=== PATIENT | male | born 1965 | race Caucasian/White ===

== ENCOUNTER 2017-11-29 23:56 | Emergency (ER) | payer OTHER ==
[2017-11-30 00:11] VITALS: TEMP 99.1
[2017-11-30] MEDS ORDERED: SODIUM CHLORIDE 0.9% 1,000 ML IV ONE (01:23)
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
--- NOTE | 2017-11-30 01:48 | XR ---
EXAMINATION TYPE: XR femur LT DATE OF EXAM: 11/30/2017 COMPARISON: NONE HISTORY: Pain TECHNIQUE: 4 views FINDINGS: I see no fracture nor dislocation. Hip joint and knee joint appear intact. IMPRESSION: Negative left femur exam.
--- NOTE | 2017-11-30 01:48 | XR ---
EXAMINATION TYPE: XR tibia fibula LT DATE OF EXAM: 11/30/2017 COMPARISON: NONE HISTORY: Leg pain TECHNIQUE: 4 views FINDINGS: There is nondisplaced transverse fracture of the head of the fibula. The ankle joint appear s intact. There is soft tissue swelling around the ankle. Knee joint spaces are fairly normal. IMPRESSION: Nondisplaced fibular head fracture.
--- NOTE | 2017-11-30 01:49 | XR ---
EXAMINATION TYPE: XR foot complete LT DATE OF EXAM: 11/30/2017 COMPARISON: NONE HISTORY: Foot pain TECHNIQUE: 3 views FINDINGS: Metatarsals are intact. I see no fracture nor dislocation. There are small calcaneal spurs. There is mild soft tissue swelling of the forefoot. IMPRESSION: Mild soft tissue swelling. No fracture.
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
[2017-11-30 02:31] LABS: Basophils % (A) 0 %; Eosinophils # (A) 0.4 k/uL (0-0.7); Eosinophils % (A) 4 %; HCT 39.7 % (39.0-53.0); HGB 13.4 gm/dL (13.0-17.5); Lymphocytes # (A) 2.3 k/uL (1.0-4.8); Lymphocytes % (A) 23 %; MCHC 33.6 g/dL (31.0-37.0); MCV 92.2 fL (80.0-100.0); Mean Platelet Volume 6.4; Monocytes # (A) 0.6 k/uL (0-1.0); Monocytes % (A) 6 %; Neutrophils # (A) 6.7 k/uL (1.3-7.7); Neutrophils % (A) 66 %; Platelet Count 405 k/uL (150-450); RBC 4.31 m/uL (4.30-5.90); RDW 14.4 % (11.5-15.5); WBC 10.2 k/uL (3.8-10.6)
[2017-11-30 02:39] LABS: ALT 34 U/L (21-72); AST 39 U/L (17-59); Albumin 4.1 g/dL (3.5-5.0); Alkaline Phosphatase 100 U/L (38-126); Anion Gap 12 mmol/L; Blood Urea Nitrogen 9 mg/dL (9-20); Calcium 9.2 mg/dL (8.4-10.2); Carbon Dioxide 23 mmol/L (22-30); Chloride 101 mmol/L (98-107); Glucose 93 mg/dL (74-99); Potassium 4.2 mmol/L (3.5-5.1); Sodium 136 mmol/L (137-145); Total Bilirubin 0.2 mg/dL (0.2-1.3); Total Protein 6.9 g/dL (6.3-8.2)
[2017-11-30 03:23] VITALS: PULSE 88; RESP 16
[2017-11-30 05:15] VITALS: BP 159/94
== END 2017-11-30 05:15 | disposition home or self-care (01) ==
LOC: EC 23:56
DX: S82.832A Other fracture of upper and lower end of left fibula, initial encounter for closed fracture (principal); F17.200 Nicotine dependence, unspecified, uncomplicated; V23.4XXA Motorcycle driver injured in collision with car, pick-up truck or van in traffic accident, initial encounter; Y92.410 Unspecified street and highway as the place of occurrence of the external cause
CPT/HCPCS: 99284; 96360; 36415; 80053; 85025; 73552; 73590; 73630; 74177; L1830 ×2; Q9967